=== PATIENT | female | born 1955 | race Caucasian/White ===

== ENCOUNTER 2024-06-13 06:51 | Day surgery (SDC) | payer MEDICARE ==
[~2024-06-13] VITALS: Ht 154.9 cm; Wt 76.2 kg
[~2024-06-13 06:51] MED LIST: BREO ELLIPTA1 INH IN; LIPITOR20 M1 PO; MONTELUKAST SOD10 MG PO; NORVASC PO; PREDNISONE10 MG PO
[2024-06-13] MEDS ORDERED: FAMOTIDINE 10MG/ML 2ML SDV IV ONE (07:00)
[2024-06-13] MEDS ORDERED: LACTATED RINGER'S 1,000 ML IV ONE (07:01)
[2024-06-13] MEDS ORDERED: STERILE WATER FOR IRRIGATION 1,000 ML BTL IR ONE (08:28)
[2024-06-13 09:03] VITALS: BP 130/75
[2024-06-13] MEDS ORDERED: LIDOCAINE HCL 2% 2ML SDV IV ONE (12:33)
[2024-06-13] MEDS ORDERED: PROPOFOL 200 MG/20 ML VIAL IV ONE (12:33)
[2024-06-13] MEDS ORDERED: GLYCOPYRROLATE 0.2 MG/ML IV ONE (12:33)
== END 2024-06-13 09:01 | disposition home or self-care (01) ==
LOC: ENDO 06:51
PROVIDERS: ATTEND Surgery
PROC: 0DBL8ZX Excision of Transverse Colon, Via Natural or Artificial Opening Endoscopic, Diagnostic (ICD-10-PCS; principal; 2024-06-13)
DX: Z12.11 Encounter for screening for malignant neoplasm of colon (principal); D12.3 Benign neoplasm of transverse colon; K63.5 Polyp of colon; K64.8 Other hemorrhoids; I10 Essential (primary) hypertension; J45.909 Unspecified asthma, uncomplicated
CPT/HCPCS: J1596